=== PATIENT | female | born 1935 | race Caucasian/White ===

== ENCOUNTER 2021-12-16 15:36 | Inpatient (IN) | payer OTHER, BC ==
[2021-12-16 17:59] LABS: BASO % 1.3 % (0-2.0); EOS % 0.1 % (0-4.5); HEMATOCRIT 16.8 % (32.4-45.2); LYMPH % 7.1 % (8-40); MCHC 29.4 g/dl (32.0-36.0); MEAN CELL VOLUME 60.8 fl (80-96); MEAN PLT VOLUME 6.8 fl (7.5-11.1); NEUT % 84.5 % (42.8-82.8); PLATELET COUNT 349 10^3/uL (134-434); RBC 2.76 M/mm3 (3.60-5.2); WHITE BLOOD COUNT 6.6 K/mm3 (4.0-10.0)
[2021-12-16 18:03] LABS: MCH 17.9 pg (25.7-33.7)
[2021-12-16 18:04] LABS: HEMOGLOBIN 4.9 GM/dL (10.7-15.3)
[2021-12-16 18:21] LABS: ALBUMIN 3.3 g/dl (3.4-5.0); BLOOD UREA NITROGEN 30.6 mg/dL (7-18); CALCIUM 9.2 mg/dL (8.5-10.1); MAGNESIUM 2.4 mg/dL (1.8-2.4)
[2021-12-16 18:24] LABS: PHOSPHOROUS 3.9 mg/dL (2.5-4.9)
[2021-12-16 18:25] LABS: TOT PROT 6.7 g/dl (6.4-8.2)
[2021-12-16 18:26] LABS: BILIRUBIN,TOTAL 0.2 mg/dL (0.2-1)
[2021-12-16 18:42] LABS: ANISOCYTOSIS 3+; MACROCYTOSIS 0; OVALOCYTE 1+; TARGET CELLS 2+
[2021-12-16 23:17] LABS: N-TERMINAL BNP 1237.2 pg/ml (5-450)
[2021-12-16] MEDS ORDERED: amLODIPine BESYLATE 5 MG TABLET (FP) PO ONE (23:28)
[2021-12-16] MEDS ORDERED: FUROSEMIDE 40 MG/4 ML INJECTABLE VIAL IVPUSH ONE (23:30)
[2021-12-17] MEDS ORDERED: amLODIPine BESYLATE 5 MG TABLET (FP) ONE ×2 (00:49→09:14)
[2021-12-17] MEDS ORDERED: FUROSEMIDE 40 MG/4 ML INJECTABLE VIAL ONE (01:32)
[2021-12-17 02:19] LABS: EPI CELLS 2 /uL (0-25.1); HYALINE CASTS 0 /uL (0-3.1); URINE APPEARANCE CLEAR; URINE BACTERIA 46 /uL (0-1359); URINE BILIRUBIN NEGATIVE (NEGATIVE); URINE COLOR YELLOW; URINE GLUCOSE (UA) NEGATIVE (NEGATIVE); URINE KETONE NEGATIVE (NEGATIVE); URINE LEUK ESTERASE TRACE (NEGATIVE); URINE NITRITE NEGATIVE (NEGATIVE); URINE PROTEIN NEGATIVE (NEGATIVE); URINE RBC 1 /uL (0-23.9); URINE UROBILINOGEN 0.2 mg/dL (0.2-1.0); URINE WBC 15 /uL (0-25.8)
[2021-12-17 04:25] LABS: HEMATOCRIT 25.7 % (32.4-45.2); MCH 20.9 pg (25.7-33.7); MCHC 31.2 g/dl (32.0-36.0); MEAN CELL VOLUME 67.2 fl (80-96); MEAN PLT VOLUME 6.7 fl (7.5-11.1); PLATELET COUNT 325 10^3/uL (134-434); RBC 3.83 M/mm3 (3.60-5.2); RDW 25.8 % (11.6-15.6); WHITE BLOOD COUNT 7.6 K/mm3 (4.0-10.0)
[2021-12-17] MEDS ORDERED: IRON SUCROSE INJECTION 200 MG in SODIUM CHLORIDE 90 ML IVPB ONE (08:29)
[2021-12-17 09:24] LABS: BASO % 1.3 % (0-2.0); EOS % 0.6 % (0-4.5); HEMATOCRIT 26.5 % (32.4-45.2); HEMOGLOBIN 8.3 GM/dL (10.7-15.3); LYMPH % 11.6 % (8-40); MCH 20.8 pg (25.7-33.7); MCHC 31.3 g/dl (32.0-36.0); MEAN CELL VOLUME 66.3 fl (80-96); MEAN PLT VOLUME 6.9 fl (7.5-11.1); MONO % 7.1 % (3.8-10.2); NEUT % 79.4 % (42.8-82.8); PLATELET COUNT 382 10^3/uL (134-434); RBC 3.99 M/mm3 (3.60-5.2); RDW 25.8 % (11.6-15.6); WHITE BLOOD COUNT 7.6 K/mm3 (4.0-10.0)
[2021-12-17 09:49] LABS: ALBUMIN 3.9 g/dl (3.4-5.0); BLOOD UREA NITROGEN 28.1 mg/dL (7-18); CALCIUM 9.6 mg/dL (8.5-10.1); MAGNESIUM 2.3 mg/dL (1.8-2.4)
[2021-12-17 09:53] LABS: CREATININE 1.9 mg/dL (0.55-1.3); PHOSPHOROUS 3.8 mg/dL (2.5-4.9)
[2021-12-17 09:54] LABS: BILIRUBIN,TOTAL 1.3 mg/dL (0.2-1); TOT PROT 7.4 g/dl (6.4-8.2)
[2021-12-17 09:58] LABS: N-TERMINAL BNP 2337.5 pg/ml (5-450)
[2021-12-17] MEDS ORDERED: amLODIPine BESYLATE 5 MG TABLET (FP) PO SCH (10:00)
[2021-12-17] MEDS: PANTOPRAZOLE 40 MG TABLET PO SCH (10:59)
[2021-12-17] MEDS ORDERED: PANTOPRAZOLE 40 MG TABLET PO ONE (10:59)
[2021-12-17] MEDS ORDERED: metoPROLOL SUCCINATE 25 MG TAB.SR.24H (FP) PO ONE (18:29)
[2021-12-18 07:38] LABS: INR 1.18 (0.83-1.09); PROTHROMBIN TIME (PATIENT) 13.6 SEC (9.7-13.0)
[2021-12-18 07:43] LABS: BASO % 1.4 % (0-2.0); EOS % 4.5 % (0-4.5); HEMATOCRIT 22.9 % (32.4-45.2); HEMOGLOBIN 7.1 GM/dL (10.7-15.3); LYMPH % 15.5 % (8-40); MCH 20.4 pg (25.7-33.7); MCHC 30.7 g/dl (32.0-36.0); MEAN CELL VOLUME 66.3 fl (80-96); MEAN PLT VOLUME 7.2 fl (7.5-11.1); MONO % 11.8 % (3.8-10.2); NEUT % 66.8 % (42.8-82.8); PLATELET COUNT 301 10^3/uL (134-434); RBC 3.46 M/mm3 (3.60-5.2); RDW 25.9 % (11.6-15.6); WHITE BLOOD COUNT 4.8 K/mm3 (4.0-10.0)
[2021-12-18 08:34] LABS: BLOOD UREA NITROGEN 25.2 mg/dL (7-18); MAGNESIUM 2.3 mg/dL (1.8-2.4)
[2021-12-18 08:38] LABS: CREATININE 1.8 mg/dL (0.55-1.3)
[2021-12-18] MEDS: PANTOPRAZOLE 40 MG TABLET PO SCH ×2 (09:26→21:33)
[2021-12-18] MEDS ORDERED: IRON SUCROSE INJECTION 100 MG in SODIUM CHLORIDE 95 ML IVPB ONE (09:49)
[2021-12-18] MEDS ORDERED: metoPROLOL SUCCINATE 25 MG TAB.SR.24H (FP) PO SCH (10:00)
[2021-12-18] MEDS ORDERED: amLODIPine BESYLATE 10 MG TABLET (FP) PO SCH (10:00)
[2021-12-18] MEDS: amLODIPine BESYLATE 5 MG TABLET (FP) PO SCH (10:35)
[2021-12-18] MEDS: POLYETHYLENE GLYCOL (HEALTHYLAX) 3350 17 GM PACKET PO SCH (21:33)
[2021-12-19 08:45] LABS: BASO % 1.2 % (0-2.0); EOS % 3.7 % (0-4.5); HEMATOCRIT 28.5 % (32.4-45.2); LYMPH % 14.6 % (8-40); MCH 22.2 pg (25.7-33.7); MCHC 31.7 g/dl (32.0-36.0); MEAN CELL VOLUME 70.2 fl (80-96); MEAN PLT VOLUME 8.3 fl (7.5-11.1); MONO % 10.9 % (3.8-10.2); NEUT % 69.6 % (42.8-82.8); PLATELET COUNT 304 10^3/uL (134-434); RBC 4.06 M/mm3 (3.60-5.2); RDW 27.3 % (11.6-15.6); WHITE BLOOD COUNT 6.5 K/mm3 (4.0-10.0)
[2021-12-19 08:57] LABS: BLOOD UREA NITROGEN 28.6 mg/dL (7-18); CALCIUM 9.1 mg/dL (8.5-10.1); MAGNESIUM 2.3 mg/dL (1.8-2.4)
[2021-12-19 09:01] LABS: CREATININE 1.9 mg/dL (0.55-1.3)
[2021-12-19] MEDS: POLYETHYLENE GLYCOL (HEALTHYLAX) 3350 17 GM PACKET PO SCH ×2 (10:17→22:54)
[2021-12-19] MEDS: PANTOPRAZOLE 40 MG TABLET PO SCH ×2 (10:17→22:54)
[2021-12-19] MEDS: amLODIPine BESYLATE 5 MG TABLET (FP) PO SCH (10:17)
[2021-12-19] MEDS ORDERED: IRON SUCROSE INJECTION 100 MG in SODIUM CHLORIDE 95 ML IVPB ONE (11:00)
[2021-12-19] MEDS ORDERED: SENNOSIDES 8.6MG TABLET (FP) PO SCH (22:00)
[2021-12-20 08:03] LABS: BASO % 1.1 % (0-2.0); EOS % 2.4 % (0-4.5); HEMOGLOBIN 9.5 GM/dL (10.7-15.3); LYMPH % 12.4 % (8-40); MCH 22.6 pg (25.7-33.7); MCHC 31.7 g/dl (32.0-36.0); MEAN CELL VOLUME 71.3 fl (80-96); MEAN PLT VOLUME 8.4 fl (7.5-11.1); MONO % 8.4 % (3.8-10.2); NEUT % 75.7 % (42.8-82.8); PLATELET COUNT 313 10^3/uL (134-434); RBC 4.21 M/mm3 (3.60-5.2); WHITE BLOOD COUNT 8.4 K/mm3 (4.0-10.0)
[2021-12-20 08:10] LABS: BLOOD UREA NITROGEN 30.1 mg/dL (7-18)
[2021-12-20 08:16] LABS: CREATININE 1.7 mg/dL (0.55-1.3)
[2021-12-20] MEDS ORDERED: FERROUS SO4 325 MG TABLET (FP) PO SCH (10:00)
[2021-12-20] MEDS: amLODIPine BESYLATE 5 MG TABLET (FP) PO SCH (10:04)
[2021-12-20] MEDS: PANTOPRAZOLE 40 MG TABLET PO SCH (10:04)
[2021-12-20] MEDS: POLYETHYLENE GLYCOL (HEALTHYLAX) 3350 17 GM PACKET PO SCH (10:04)
[2021-12-20 11:27] VITALS: BP 145/44; PULSE 87; RESP 18; TEMP 98.4
[2021-12-20 12:13] LABS: ANISOCYTOSIS 2+; MACROCYTOSIS 2+; OVALOCYTE 2+
== END 2021-12-20 13:31 | disposition home or self-care (01) | DRG 378 ==
LOC: JER 15:36 → JERBED 15:58 → OBSVTOIN 22:46 → J4W 12-17 15:17
PROVIDERS: ADMIT Internal Medicine; ATTEND Internal Medicine
PROC: 30233N1 Transfusion of Nonautologous Red Blood Cells into Peripheral Vein, Percutaneous Approach (ICD-10-PCS; principal; 2021-12-16)
DX: K92.2 Gastrointestinal hemorrhage, unspecified (principal); K86.2 Cyst of pancreas; N17.9 Acute kidney failure, unspecified; D50.0 Iron deficiency anemia secondary to blood loss (chronic); R55 Syncope and collapse; I10 Essential (primary) hypertension; T39.395A Adverse effect of other nonsteroidal anti-inflammatory drugs [NSAID], initial encounter; N18.9 Chronic kidney disease, unspecified; I16.0 Hypertensive urgency; E86.0 Dehydration; K21.9 Gastro-esophageal reflux disease without esophagitis; Y92.89 Other specified places as the place of occurrence of the external cause
CPT/HCPCS: 36415; 36430; 70450-TC; 71046-TC-FY; 74176-TC; 74181-TC; 76775-TC; 80048; 80053; 81003; 82105; 82272; 82728; 83540; 83550; 83690; 83735; 83880; 84100; 84443; 84466; 84484; 85025; 85027; 85045; 85610; 86301; 86850; 86900; 86901; 86922; 87086; 93005; 93010; 93306-TC; 97116-GP; 97161-GP; 99291; C9803-CS; G0378; J1756; P9058; U0003; U0005

== ENCOUNTER 2024-07-22 17:49 | Inpatient (IN) | payer OTHER, BC ==
[2024-07-22] MEDS ORDERED: metoPROLOL SUCCINATE 25 MG TAB.SR.24H (FP) PO ONE (19:10)
[2024-07-22 19:24] VITALS: BMI 25.4
[2024-07-22] MEDS: SODIUM CHLORIDE 1,000 ML IV SCH (19:28)
[2024-07-22] MEDS: metoPROLOL SUCCINATE 25 MG TAB.SR.24H (FP) PO ONE (19:29)
[2024-07-22 19:53] LABS: ABSOLUTE IMMATURE GRANULOCYTES 0.02 x10^3/uL (0.0-0.031); BASOPHILS # 0.04 x10^3/uL (0.01-0.08); EOSINOPHIL % 0.2 % (0.7-5.8); EOSINOPHILS # 0.01 x10^3/uL (0.04-0.36); HEMATOCRIT 37.5 % (34.1-44.9); HEMOGLOBIN 12.1 g/dL (11.2-15.7); MCHC 32.3 g/dl (32.2-35.5); MEAN CELL VOLUME 95.9 fl (79.4-94.8); MONOCYTE # 0.58 x10^3/uL (0.24-0.86); MONOCYTE % 9.5 % (4.7-12.5); PLATELET COUNT 185 x10^3/uL (182-369)
[2024-07-22 20:04] LABS: CHLORIDE 104 mmol/L (98-107); POTASSIUM 4.1 mmol/L (3.5-5.1); SODIUM 140 mmol/L (136-145)
[2024-07-22 20:06] LABS: CALCIUM 9.7 mg/dL (8.5-10.1)
[2024-07-22 20:07] LABS: ALBUMIN 3.6 g/dl (3.4-5.0); ANION GAP 8 mmol/L (4-13); BLOOD UREA NITROGEN 20.2 mg/dL (7-18); CO2 27 mmol/L (21-32); GLUCOSE,RANDOM 135 mg/dL (74-106); INR 1.11 (0.83-1.09); PROTHROMBIN TIME (PATIENT) 12.2 SEC (9.7-13.0)
[2024-07-22 20:10] LABS: ACTIVATED PTT 30.2 SECONDS (25.2-36.5); CHOLESTEROL 150 mg/dL (50-200); CREATININE 1.6 mg/dL (0.55-1.3); SGOT/AST 22 U/L (15-37); SGPT/ALT 19 U/L (13-61)
[2024-07-22 20:11] LABS: BILIRUBIN,TOTAL 0.5 mg/dL (0.2-1); LDL CHOLESTEROL (ONLY SJRH) 71 mg/dL (5-100)
[2024-07-22 20:12] LABS: ALK PHOS 47 U/L (45-117)
[2024-07-22 20:17] LABS: HDL CHOLESTEROL 65 mg/dL (40-60)
[2024-07-22] MEDS ORDERED: DOXYCYCLINE HYCLATE 100 MG TABLET PO ONE (20:33)
[2024-07-22] MEDS: DOXYCYCLINE HYCLATE 100 MG CAPSULE PO ONE (20:42)
[2024-07-22] MEDS ORDERED: ONDANSETRON 4 MG/2 ML VIAL ONE (21:27)
[2024-07-22] MEDS ORDERED: ASPIRIN 81 MG CHEWABLE TABLETS ONE (21:27)
[2024-07-22] MEDS: ONDANSETRON 4 MG/2 ML VIAL IVPUSH ONE (21:39)
[2024-07-22] MEDS: ASPIRIN 81 MG CHEWABLE TABLETS PO ONE (21:39)
[2024-07-22 22:03] LABS: PH,URINE 7.5 (5.0-8.0); URINE APPEARANCE CLEAR; URINE BILIRUBIN NEGATIVE (NEGATIVE); URINE COLOR YELLOW; URINE GLUCOSE (UA) NEGATIVE (NEGATIVE); URINE KETONE TRACE (NEGATIVE); URINE LEUK ESTERASE NEGATIVE (NEGATIVE); URINE NITRITE NEGATIVE (NEGATIVE); URINE PROTEIN TRACE (NEGATIVE); URINE UROBILINOGEN 0.2 mg/dL (0.2-1.0)
[2024-07-23] MEDS ORDERED: ACETAMINOPHEN 325 MG TABLET (FP) PO PRN (00:50)
[2024-07-23] MEDS: amLODIPine BESYLATE 5 MG TABLET (FP) PO SCH (01:08)
[2024-07-23] MEDS: AMPICILLIN NA/SULBACTAM NA 1.5 GM in SODIUM CHLORIDE 100 ML IVPB SCH (02:13)
[2024-07-23 08:01] LABS: ABSOLUTE IMMATURE GRANULOCYTES 0.02 x10^3/uL (0.0-0.031); BASOPHILS # 0.04 x10^3/uL (0.01-0.08); EOSINOPHIL % 0.2 % (0.7-5.8); EOSINOPHILS # 0.01 x10^3/uL (0.04-0.36); HEMATOCRIT 36.9 % (34.1-44.9); HEMOGLOBIN 11.8 g/dL (11.2-15.7); MEAN CELL VOLUME 95.3 fl (79.4-94.8); MEAN PLT VOLUME 9.6 fl (9.4-12.3); MONOCYTE # 0.55 x10^3/uL (0.24-0.86); MONOCYTE % 10.8 % (4.7-12.5); PLATELET COUNT 180 x10^3/uL (182-369); RDW 13.9 % (12.5-17.0)
[2024-07-23 08:24] LABS: POTASSIUM 3.9 mmol/L (3.5-5.1)
[2024-07-23 08:26] LABS: CALCIUM 9.5 mg/dL (8.5-10.1)
[2024-07-23 08:27] LABS: ALBUMIN 3.4 g/dl (3.4-5.0); BLOOD UREA NITROGEN 18.8 mg/dL (7-18)
[2024-07-23 08:30] LABS: CREATININE 1.4 mg/dL (0.55-1.3); PHOSPHOROUS 3.1 mg/dL (2.5-4.9)
[2024-07-23 08:31] LABS: BILIRUBIN,TOTAL 0.5 mg/dL (0.2-1); TOT PROT 6.5 g/dl (6.4-8.2)
[2024-07-23 08:35] LABS: N-TERMINAL BNP 3620.8 pg/ml (5-450)
[2024-07-23] MEDS: metoPROLOL SUCCINATE 25 MG TAB.SR.24H (FP) PO SCH (09:16)
[2024-07-23] MEDS: HEPARIN NA (PORCINE) 5,000 UNITS/ML 1ML VIAL SQ SCH (09:16)
[2024-07-23] MEDS: DOXYCYCLINE HYCLATE 100 MG CAPSULE PO SCH (09:22)
[2024-07-23] MEDS: predniSONE 20 MG TABLET (UD) PO SCH (13:45)
[2024-07-23] MEDS: CEFTRIAXONE 2 GM-D5W BAG 2 GM/50 ML BAG IVPB SCH (13:45)
[2024-07-23] MEDS: valACYclovir HCL 500 MG TABLET (FP) PO SCH (13:46)
[2024-07-23] MEDS: ARTIFICIAL TEARS OPHTHALMIC DROPS OU SCH (22:46)
[2024-07-23] MEDS: ROSUVASTATIN CA 5 MG TABLET PO SCH (22:46)
[2024-07-24 07:46] LABS: HEMOGLOBIN 11.8 g/dL (11.2-15.7); MCHC 31.9 g/dl (32.2-35.5); MEAN CELL VOLUME 95.9 fl (79.4-94.8); PLATELET COUNT 177 x10^3/uL (182-369); RDW 13.5 % (12.5-17.0)
[2024-07-24 08:16] LABS: POTASSIUM 4.3 mmol/L (3.5-5.1)
[2024-07-24 08:19] LABS: BLOOD UREA NITROGEN 22.4 mg/dL (7-18)
[2024-07-24 08:22] LABS: CREATININE 1.3 mg/dL (0.55-1.3)
[2024-07-25 06:47] LABS: HEMATOCRIT 36.7 % (34.1-44.9); HEMOGLOBIN 11.8 g/dL (11.2-15.7); MCHC 32.2 g/dl (32.2-35.5); MEAN CELL VOLUME 93.1 fl (79.4-94.8); MEAN PLT VOLUME 9.7 fl (9.4-12.3); PLATELET COUNT 196 x10^3/uL (182-369); RDW 13.4 % (12.5-17.0)
[2024-07-25 09:03] LABS: POTASSIUM 4.2 mmol/L (3.5-5.1)
[2024-07-25 09:08] LABS: ALBUMIN 3.2 g/dl (3.4-5.0); BLOOD UREA NITROGEN 27.5 mg/dL (7-18)
[2024-07-25 09:09] LABS: CALCIUM 9.1 mg/dL (8.5-10.1)
[2024-07-25 09:11] LABS: BILIRUBIN,TOTAL 0.4 mg/dL (0.2-1); TOT PROT 6.4 g/dl (6.4-8.2)
[2024-07-25 09:12] LABS: CREATININE 1.3 mg/dL (0.55-1.3)
[2024-07-25] MEDS: ACETAMINOPHEN 325 MG TABLET (FP) PO PRN (21:48)
[2024-07-26 10:52] LABS: HEMATOCRIT 37.5 % (34.1-44.9); HEMOGLOBIN 12.3 g/dL (11.2-15.7); MCHC 32.8 g/dl (32.2-35.5); MEAN CELL VOLUME 93.3 fl (79.4-94.8); MEAN PLT VOLUME 10.7 fl (9.4-12.3); PLATELET COUNT 202 x10^3/uL (182-369); RDW 13.3 % (12.5-17.0)
[2024-07-26 11:19] LABS: POTASSIUM 4.1 mmol/L (3.5-5.1)
[2024-07-26 11:21] LABS: CALCIUM 9.4 mg/dL (8.5-10.1)
[2024-07-26 11:22] LABS: ALBUMIN 3.1 g/dl (3.4-5.0); BLOOD UREA NITROGEN 34.1 mg/dL (7-18)
[2024-07-26 11:25] LABS: CREATININE 1.3 mg/dL (0.55-1.3)
[2024-07-26 11:26] LABS: BILIRUBIN,TOTAL 0.3 mg/dL (0.2-1)
[2024-07-26 11:27] LABS: TOT PROT 6.2 g/dl (6.4-8.2)
[2024-07-26] MEDS ORDERED: AMOX TR/POT CLAV 500MG/125MG TABLETS (FP) PO SCH (11:30)
[2024-07-26] MEDS: AMOX TR/POT CLAV 500MG/125MG TABLETS (FP) PO SCH (12:29)
[2024-07-27 10:26] VITALS: BP 145/60; PULSE 72; RESP 18; TEMP 97.3
== END 2024-07-27 14:19 | disposition home or self-care (01) | DRG 74 ==
LOC: JER 17:49 → JERBED 20:40 → J4S 23:48 → J4W 07-23 17:19
PROVIDERS: ADMIT Student in an Organized Health Care Education/Training Program; ATTEND Internal Medicine
DX: G51.0 Bell's palsy (principal); B02.21 Postherpetic geniculate ganglionitis; H40.9 Unspecified glaucoma; H60.91 Unspecified otitis externa, right ear; E78.5 Hyperlipidemia, unspecified; I12.9 Hypertensive chronic kidney disease with stage 1 through stage 4 chronic kidney disease, or unspecified chronic kidney disease; N18.9 Chronic kidney disease, unspecified; I16.0 Hypertensive urgency; B02.9 Zoster without complications
CPT/HCPCS: 36415; 70450-TC; 70496-TC; 70498-TC; 80048; 80053; 80061; 81003; 82550; 82553; 82962; 83036; 83735; 83880; 84100; 84484; 85025; 85027; 85610; 85730; 86618; 86787; 87086; 93005; 93010; 93306-TC; 97116-GP; 97162-GP; 99285-25; J1644